=== PATIENT | male | born 1955 | race Caucasian/White ===

== ENCOUNTER 2016-11-15 06:38 | Day surgery (SDC) | payer OTHER ==
[2016-11-15] VITALS (11 sets, daily range): BP systolic 125–147; BP diastolic 68–76; PULSE 68–78; RESP 13–18; O2SAT 98–100
[~2016-11-15] VITALS: Ht 182.9 cm; Wt 75.2 kg
[2016-11-15] MEDS: Lactated Ringer's 1,000 ML IV SCH ×3 (05:00→09:43)
[~2016-11-15 06:38] MED LIST: ASPI-973 PO; CeFAZolin 2 Gm/50 mL D5W IV Premix IV ONE
[2016-11-15] MEDS ORDERED: MetoCLOpramide 5 mg/mL 2 mL Inj ONE (06:39)
[2016-11-15] MEDS ORDERED: Ondansetron 2 mg/mL 2 mL Inj ONE (06:39)
[2016-11-15] MEDS ORDERED: Glycopyrrolate 0.2 MG/ML 1mL Inj ONE (06:39)
[2016-11-15] MEDS ORDERED: Remifentanil 1 mg/3 mL Inj ONE (06:39)
[2016-11-15] MEDS ORDERED: Dexamethasone 4 mg/mL Inj ONE (06:39)
[2016-11-15] MEDS ORDERED: EPHEDrine/NS 5 mg/mL 5 mL Syringe ONE (06:39)
[2016-11-15] MEDS ORDERED: Propofol 10,000 mCg/mL 20 mL Inj ONE (06:39)
[2016-11-15] MEDS ORDERED: fentaNYL-PF 50 mCg/mL 2 mL Inj ONE (06:39)
[2016-11-15] MEDS ORDERED: Bupivacaine-MPF 0.5% 30 mL Inj INFILTRATE ONE (09:43)
--- NOTE | 2016-11-15 09:48 | PCM.HPANE ---
Patient Data Surgeon Admitting Provider: Attending Provider:Tg Weaver MD Primary Care Physician:Amrit Marc MD Other Provider:Latoya Ramirez Anesthesia Reason for Visit Left Inguinal Hernia Ht/WT & BMI Height (Feet): 5 Height (Inches): 11.50 Weight (Kilograms): 75.300 Body Mass Index 22.00 Allergies Coded Allergies: No Known Allergies (Unverified , 11/09/16) Past Anesthesia History Anesthesia History: Denies:: Abnormal Airway, Anesthesia Reactions, Difficult Intubation, Fam Anesthesia Reaction, Fam Malignant Hypertherm, Malignant Hyperthermia Diabetes History Hx Diabetes?: No MRSA MRSA: No Medications Blood Thinner: Aspirin Hypertension Medication: No Home Meds Incl Beta Melody: No Reported Medications Aspirin 81 Mg [id number] Mg PO DAILY Ref 0 11/09/16 History History of ENT Problems?: No HEENT History: Denies:: Abnormal Airway Cataracts Difficult Intubation Dysphagia Glaucoma Hearing Problem Sinus Problem TMJ Denture Type: None Teeth Condition: Within Normal Limits Hx of Heart Problems?: No Cardiovascular History: Denies:: AICD Abdominal Aortic Aneurism Atrial Fibrillation Cardiac Surgery Chest Pain Congestive Heart Failure Coronary Artery Disease Edema Heart Murmur Hypertension Irregular Heartbeat Pacemaker Peripheral Vascular Rheumatic Fever Thrombophlebitis Valvular Heart Disease Hx of Respiratory Problem?: No Respiratory History: Denies:: Asthma COPD Chest Surgery Cough Dyspnea Emphysema Hemoptysis Oxygen Administration Pneumonia Pulmonary Embolism Tuberculosis Use of C-PAP Machine Use of Inhalers / NEBS Hx Neurologic Problems?: No Neurological History: Positive for:: Dizziness (occasional "fainting" happened twice) Denies:: Alzheimer's Disease CVA Dementia Headaches Multiple Sclerosis Parkinson's Disease Peripheral Neuropathy Seizures TIA Hx of GI Problems?: Yes Gastrointestinal History: Denies:: Cirrhosis Diverticulitis Gall Bladder Disease Gastroesphageal Reflux Gastrointestinal Bleeding Heartburn Hepatitis Hiatal Hernia Liver Disease Rectal Bleeding Other GI Pertinent History: left inguinal hernia current admission problem Hx of Problems?: No Genitourinary History: Denies:: HX of Hemodialysis Kidney Stones Urinary Tract Infection HX of Peritoneal Dialysis: No Male Hx: Denies:: Prostate Problems ("fat" prostate) Scrotal Mass Testicular Surgery Skin History: Denies:: History Skin Disorders? Pressure Ulcers Hx Musculoskeletal Problems?: Yes Musculoskeletal History: Positive for:: Musculoskeletal Trauma (left knee acl injury 17 years ) Denies:: Back Injury Degenerative Joint Fibromyalgia Joint Replacement Myasthenia Gravis Osteoarthritis Rheumatoid Arthritis Systemic Lupus Hx of Psycho/Social Problems?: No Psycho Social History: Denies:: Anxiety Bipolar Disorder Hx Depression Suicide Attempt Hx Surgeries?: Yes (tonsil) Hx Any Other Health Problems?: Yes Other History: Positive for:: Cancer (BCC facial) Denies:: Endocrine Disease Hospitalization Thyroid Disease History Blood Transfusions: Positive for:: Accept Blood Products? Denies:: Blood Transfuse Reaction Blood Transfusions Hx Diabetes: No Hx Alcohol Use: YesAlcoholic Drinks Per Day: rarely a couple of times of year Hx Substance Use: NoHave You Smoked inLast 12 mo: No Stop/Bang S-Snoring: Do You Snore Loudly: No T-Tired: feel tired, fatigued: No O-Obsered: Observed not breath: No P-Blood Pressure: treated: No B- Body Mass Index > 35 kg/m2: No A- Age over 50: Yes N- Neck Large Circumference: No G- Gender Male: Yes ANTONY Total Score: 2 Risk Assessment Category Category 1A: Patient has history of documented sleep apnea, and HAS NOT received any narcotic, sedative or anesthesia administration during this stay. Category 1B: Patient has history of documented sleep apnea, and HAS received any narcotic , sedative or anesthesia administration during this stay Category 2: Patient has SUSPECTED Obstructive Sleep Apnea, and HAS received any narcotic , sedative or anesthesia administration during this stay. Category 3: Patient has SUSPECTED Obstructive Sleep Apnea and HAS NOT received narcotic, sedative or anesthesia administration during this stay. Category 4: Outpatient in Procedural Areas with known sleep apnea or who screen positive for High Risk via the STOP/BANG questionnaire. Exam Exam Vital Signs Vital Signs Date Time Temp Pulse Resp B/P Pulse Ox O2 Delivery O2 Flow Rate FiO2 11/15/16 07:06 36.5 68 16 145/74 100 Room Air General Appearance: Alert, Oriented X3, Cooperative, No Acute Distress HEENT/AIRWAY: MP 2, Neck Movement (FROM), Mouth Opening (3 FBMO) Lungs: Clear to Auscultation, Normal Air Movement Heart: Exam Unremarkable, Regular Rate/Rhythm, No Murmurs/Rubs/Gallops Meds/Labs/Diagnostics Admission Meds Current Medications Lactated Ringer's (Lr) 1,000 ml @ 120 mls/hr [id number] IV Last administered on t 07:21; Start 11/15/16 at 05:00; Stop 11/15/16 at 13:19 Plan Impression Patient chart reviewed, patient interviewed and anesthestic plan with risks, benefits, and alternatives discussed, and informed consent obtained. NPO per Anesth. Guidelines: Yes ASA Physical Status: ASA1 Normal Healthy Anesthetic Plan: GA Bene/Risks/Altern/Consents: Yes HP Complete Prior to Induction: Yes Logan Hernandez MD Nov 15, 2016 07:49
[2016-11-15] MEDS ORDERED: Lactated Ringer's 1,000 ML IV SCH (09:49)
[2016-11-15] MEDS ORDERED: Lactated Ringer's 500 ML IV PRN (09:49)
[2016-11-15] MEDS ORDERED: Labetalol 5 mg/mL 4 mL Inj IV PRN (09:50)
[2016-11-15] MEDS ORDERED: Ondansetron 2 mg/mL 2 mL Inj IVPUSH PRN ×2 (09:50→11:10)
[2016-11-15] MEDS ORDERED: HYDROmorphone 1 mg/mL Inj IVPUSH PRN (09:50)
[2016-11-15] MEDS ORDERED: Phenylephrine 10,000 mCg/mL Inj IVPUSH PRN (09:50)
[2016-11-15] MEDS ORDERED: MetoCLOpramide 5 mg/mL 2 mL Inj IVPUSH PRN ×2 (09:50→11:10)
[2016-11-15] MEDS ORDERED: EPHEDrine Sulfate 50 mg/mL Inj IVPUSH PRN (09:50)
[2016-11-15] MEDS ORDERED: fentaNYL-PF 50 mCg/mL 2 mL Inj IVPUSH PRN (09:50)
[2016-11-15] MEDS ORDERED: Atropine 0.4 mg/mL Inj IVPUSH PRN (09:50)
[2016-11-15] MEDS ORDERED: oxyCODONE-Acetamin 5-325 mg Tablet PO PRN (11:10)
--- NOTE | 2016-11-15 11:15 | PCM.SURGOP ---
Surgical Operative Report Date of Service: Nov 15, 2016 Pre Operative Diagnosis Left inguinal hernia Post Operative Diagnosis Indirect left inguinal hernia Procedure: Laparoscopic left internal hernia repair Surgeon and Hot Dip Galvanizer: Surgeon: Tg Weaver MD Assistants: Dion Steve MD R3; Rosario Mulligan MS3 Indication for Procedure This is a 61-year-old man who presented as an outpatient with a painful bulge consistent with left inguinal hernia. He desired repair. Findings: Small indirect sac. Cord lipoma. Procedure Details The patient was brought to the operating room and placed in supine position. General anesthesia was induced. A warming blanket and SCDs were placed. A Rausch catheter was placed. Antibiotics were infused. Both arms were tucked. The operative field was prepped and draped in a sterile fashion. A pause was performed to confirm the correct patient, procedure, site, and side. A transverse infraumbilical incision was made and the anterior rectus fascia was incised vertically on the left. An 11 mm port was placed with a blunt tip posterior to the rectus abdominis and preperitoneal insufflation commenced. A 0 degree camera was used to develop the preperitoneal space, leaving the epigastric anterior. Two additional 5 mm ports were then placed in the midline below the umbilicus. The preperitoneal space was then developed and dissected with care taken to preserve the epigastrics and to develop a landing zone for the mesh both medially and laterally. This dissection was primarily blunt and good hemostasis was achieved. The hernia defect was seen lateral to the epigastrics and the sac was reduced. Randy's ligament was identified and cleared off. A left sided piece of Bard 3DMax mesh, medium size, 3.3 x 5.4 inches, was inserted via the infraumbilical port. It was fashioned into the correct location such that the direct defect was well covered. An absorbable tacking device was then used to tack the mesh to Randy's ligament. The mesh was checked again for appropriate positioning and no sign of wrinkles or creases. A second tack was placed medial to the epigastrics and cephalad to the 1st tack. The ports were removed and the desufflated. The fascia was closed with an interrupted 0 vicryl stitch. Skin was closed with 4-0 Monocryl. Local anesthetic was infused at all port seats. Sterile dressings were placed. The patient was awakened from general anesthesia and taken to the postoperative care unit in good condition. Complications There were no periprocedural complications identified. Surgical Specimen Removed: No Specimen sent to Pathology: No Anesthetic Plan: GA Grafts, Implants: None Output, Estimated Blood Loss: 2 (ml) Blood Administration during mallory: No Tg Weaver MD Nov 15, 2016 11:15
--- NOTE | 2016-11-15 12:06 | PCM.ANEP1 ---
Post Anesthesia PACU Phase 1 Assessment Vital Signs Vital Signs Date Time Temp Pulse Resp B/P Pulse Ox O2 Delivery O2 Flow Rate FiO2 11/15/16 11:51 36.4 68 17 139/71 100 Room Air 11/15/16 11:50 71 17 135/68 99 Room Air 11/15/16 11:42 78 15 135/69 98 Room Air 11/15/16 11:30 75 13 132/69 98 Simple Mask 10 11/15/16 11:25 69 17 125/69 98 Simple Mask 10 11/15/16 11:20 68 13 130/72 98 Simple Mask 10 11/15/16 11:15 36.2 69 15 129/70 98 Simple Mask 10 11/15/16 07:06 36.5 68 16 145/74 100 Room Air Anesthetic Administered: GA Level of Alertness: Awake, talking FRYE's with Equal Strength: Yes Pain: No Nausea or Vomiting: No CV Function & Hydration Stable: No Airway Device: N/A Oxygen Delivery: Simple Mask Lungs: Clear to Auscultation, Normal Air Movement Dermatome Level: Full Sensation PACU Phase 2 Assessment Complications: No Follow up Care: N/A Patient Instructions Provided: N/A Logan Hernandez MD Nov 15, 2016 12:06
--- NOTE | 2016-11-15 13:15 | NUR ---
Post op Pt comes from PACU A&OX4, Denies any langston at this time. Denies CP, SOB, or nausea. 3 Lap sites with bandaids C/D/I. IV Left hand patent and in use. Plan to SL. On RA. Care continues
[2016-11-16 00:15] VITALS: BP 146/67; PULSE 78; RESP 16; O2SAT 96
--- NOTE | 2016-11-16 01:53 | NUR ---
Activity Pt ambulates independently in room, states pain is minor when he sits up/ambulates. APAP given. Lap sites covered with band aids, no drainage present. Pt comfortable, no respiratory or cardiac distress. Care continues
[2016-11-16 05:06] VITALS: BP 135/72; PULSE 76; RESP 18; O2SAT 97
--- NOTE | 2016-11-16 07:32 | PCM.DISURG ---
Surgical Discharge Instruction Date of Service Nov 16, 2016 Dates of Hospitalization Date of Hospital Admission 11/15/2016 Providers Admitting Physician: Primary Care Physician: Amrit Marc MD Attending Physician: Tg Weaver MD Discharge Diagnosis Discharge Diagnosis Status post Laparoscopic left internal hernia repair Post Operative diagnosis Indirect left inguinal hernia Diet Discharge Diet: No restrictions Activity Discharge Activity-General: No lifting >15 pounds for 2 weeks Dressing and Incisional Care Dressing Care: Allow Steri Stripes to fall off, Remove outer dressing after 24 hrs Hygiene: May shower, DO NOT soak incision under water Follow Up Plan Mid-level Provider (F9): Tg Weaver MD Follow-up appointment: Weeks (2 ) Call your provider for: Fever, Chills, Shortness of breath, Increasing abdominal pain, Nausea, Vomiting, Wound redness, Increasing wound pain, Warmth to touch, Discharge @ incision, pus discharge Obdulio Herrera PA-C Nov 16, 2016 07:32
[2016-11-16] MEDS ORDERED: OXYC1TAB24 PO (07:44)
--- NOTE | 2016-11-16 10:33 | NUR ---
Discharge Pt was d/c'd from room 1018 at 1030 home via private vehicle. All discharge teaching and instructions done with pt at bedside. All questions and concerns addressed. IV d/c'd intact. Pt taking Tylenol for pain control and able to drive self home. Hard copy of RX with pt, although pt states he does not need it. Pt passing gas and tolerating general diet. All belongings with pt. No items in the safe or pharmacy.
--- NOTE | 2016-11-16 15:16 | PCM.DC.SUR ---
Discharge Summary Date of Service: Nov 16, 2016 Date of Hospital Admission: November 15, 2016 Date of Operation(s): November 15, 2016 Date of Discharge: Nov 16, 2016 at 10:22 Diagnosis at Time of Discharge Left inguinal hernia Problems: Brief History and Physical: 61 year old male who presented for surgical evaluation with a painful left groin bulge. After discussion of the risks, benefits, and alternatives, he elected to proceed with a laparoscopic repair. Hospital Course: The patient underwent an uncomplicated totally extraperitoneal laparoscopic left inguinal hernia repair with mesh on 11/15/16. Post-operatively he was taken to the PACU where he recovered from a general anesthetic. He was then admitted to the general surgery floor for intensive nursing care and overnight observation. Subsequently, his diet was advanced with excellent toleration, his pain was controlled with a PO only narcotic regimen, he resumed normal and spontaneous bowel and bladder function, and he was entirely tolerant of ambulation. He was examined on the morning of POD#1 and was found to have a benign abdominal exam. He was therefore deemed safe for a discharge to home. Disposition: Home Follow-up Plan: In general surgery clinic in 7-10 days. Strict return precautions were established and the patient expressed his understanding. Aspirin (Aspirin) 81 Mg Tablet 81 MG PO DAILY (Reported) oxyCODONE-Acetaminophen 5-325 mg (oxyCODONE-Acetaminophen 5-325 mg) 1 Each Tablet 1 TAB PO Q6H PRN PRN Severe break through pain Reji Steve MD Nov 16, 2016 15:16
== END 2016-11-16 10:22 | disposition home or self-care (01) ==
LOC: SAS 06:38 → OSC 13:40 → SAS 11-16 10:22
PROVIDERS: ATTEND Surgery
DX: K40.90 Unilateral inguinal hernia, without obstruction or gangrene, not specified as recurrent (principal); E78.5 Hyperlipidemia, unspecified; Z79.82 Long term (current) use of aspirin; Z85.828 Personal history of other malignant neoplasm of skin
CPT/HCPCS: 49650; C1781; J0690; J1100; J1885; J2405; J2765; J3010; J7120